=== PATIENT | female | born 1965 | race Caucasian/White ===

== ENCOUNTER → 2019-05-19 09:53 | Outpatient (CLI) | payer MEDICARE, MEDICAID ==
[~2019-05-19 09:53] MED LIST: CYCLOBENZAPRINE10 MG PO; HYDROCODON-ACE1 EAC7 PO; KLONOPIN1 MG PO; LEVO-T25 MCG PO; OMEPRAZOLE40 MG PO; PAXIL20 MG PO; SEROQUEL400 MG PO; TYLENOL W/CODEI1 TAB PO; ULTRAM50 MG PO
[2019-06-06 13:37] VITALS: BMI 33.2
== END | disposition home or self-care (01) ==
LOC: D.OPS 08:30
PROVIDERS: ATTEND Surgery
DX: K21.9 Gastro-esophageal reflux disease without esophagitis (principal); K44.9 Diaphragmatic hernia without obstruction or gangrene

== ENCOUNTER 2019-06-06 06:05 | Inpatient (IN) | payer MEDICARE ==
[~2019-06-06] VITALS: Ht 162.6 cm; Wt 87.7 kg
[2019-06-06] VITALS (8 sets, daily range): BP systolic 111–138; BP diastolic 76–83; Ht 162.6 cm; Wt 87.7 kg
[~2019-06-06 06:05] MED LIST changes: -HYDROCODON-ACE1 EAC7 PO
[2019-06-06 06:39] LABS: BASOPHILS 0.5 % (0-2); EOSINOPHILS 5.3 % (0-7); HEMATOCRIT 32.3 % (36.0-48.0); HEMOGLOBIN 10.1 g/dL (12-16); IMMATURE GRANULOCYTES 0.3 % (0-5); LYMPHOCYTES 19.7 % (15-50); MCH 21.9 pg (26.0-34.0); MCHC 31.3 g/dL (31.0-37.0); MCV 70.1 fL (80.0-100.0); MEAN PLATELET VOLUME 10.1 fL (7.4-10.4); MONOCYTES 8.8 % (2-11); NEUTROPHILS 65.4 % (40-80); PLATELET COUNT 290 10x3/uL (130-400); RBC 4.61 10x6/uL (4.00-5.40); RDW 19.2 % (11.5-14.5); WBC 9.6 10x3/uL (4.8-10.8)
--- NOTE | 2019-06-06 08:22 | NUR ---
0735 PT SNEEZING AND C/O ITCHING IN NOSE FROM NASAL SWABS. QTIPS GIVEN TO PATIENT TO WET WITH WATER AND SHE REMOVED SOME OF THE IODINE FROM NOSE. SYMPTOMS IMPROVED. NO ALLERGIC REACTION NOTED FROM IODINE AFTER REMOVAL OF SOME OF THE RESIDUE.
--- NOTE | 2019-06-06 09:45 | NUR ---
PATIENT HAS RED INFLAMMED AREA THAT HAS 2 SPOTS IN THE MIDDLE OF AREA, ON RIGHT HIP, JENNIFER.
--- NOTE | 2019-06-06 12:35 | NUR ---
RCVED PT FROM REC ROOM VIA HOSPITAL STAFF AND BED. ALERT AND ORIENTED. CURRENTLY RCVING 2L VIA NC. IV LOCATED TO RIGHT HAND. COMPLAINING OF STIFFNESS OF THE NECK AND BACK. ASKING FOR ICE CHIPS AND PAIN MED. MORPHINE HEADHUNTER PUMP INITIATED. WILL CONT TO MONITOR.
--- NOTE | 2019-06-06 19:46 | NUR ---
UP IN BED, ABLE TO VOICE ALL NEEDS. C/O PAIN OF 3/10, REQUESTS ICE PACK FOR ABDOMEN, LONGER CANNULA GIVEN AND ROOM REARRANGED TO ACCOMODATE RESTROOM TRIPS, EXPRESSED VERBAL THANKS, REQUESTED EVENING MEDS SOON POSSIBLE, NO FURTHER COMPLAINTS OR S/S OF ANY DISTRESS NOTED. WILL NOTE ANY CHANGE.
--- NOTE | 2019-06-06 23:06 | NUR ---
IV TO LEFT HAND WAS DISLODGED DURING TRANSFER TO RESTROOM, CATHETER WAS INTACT UPON REMOVAL, RESITED TO INNER LEFT WRIST AND REINFORCED WITH KERLIX AND JOSE WRAP TO HELP PROTECT DURING FUTURE TRANSFERS.
--- NOTE | 2019-06-07 00:47 | NUR ---
CALLED TO ROOM FOR PAIN TO IV SITE, NOTED TO BE DISLODGED, VERY RESTLESS AND FREELY MOVING ABOUT, IV WAS REMOVED WITH CATHETER TIP INTACT, PT COMPLAINED OF PAIN TO SITE, ICE PACK PROVIDED WILL ATTEMPT TO RESITE IV WHEN PT IS CALMER.
--- NOTE | 2019-06-07 00:57 | NUR ---
COMPLAINS OF PAIN TO LEFT HAND, TYLENOL GIVEN PER ORDERS, STATES SHE WANTS TO WAIT JUST A LITTLE BIT BEFORE GETTING NEW IV.
[2019-06-07 01:44] VITALS: BP 116/71
--- NOTE | 2019-06-07 01:55 | NUR ---
IV RESITED TO RIGHT HAND.
[2019-06-07 04:38] VITALS: BP 124/75
[2019-06-07 06:02] LABS: BASOPHILS 0.3 % (0-2); EOSINOPHILS 2.1 % (0-7); HEMATOCRIT 29.1 % (36.0-48.0); HEMOGLOBIN 8.9 g/dL (12-16); IMMATURE GRANULOCYTES 0.2 % (0-5); LYMPHOCYTES 11.2 % (15-50); MCHC 30.6 g/dL (31.0-37.0); MCV 71.9 fL (80.0-100.0); MEAN PLATELET VOLUME 10.2 fL (7.4-10.4); MONOCYTES 5.9 % (2-11); NEUTROPHILS 80.3 % (40-80); PLATELET COUNT 257 10x3/uL (130-400); RBC 4.05 10x6/uL (4.00-5.40); RDW 19.2 % (11.5-14.5); WBC 10.1 10x3/uL (4.8-10.8)
--- NOTE | 2019-06-07 06:09 | NUR ---
AFTER IV WAS RESITED, ABLE TO GET REST AND QUALITY HOURS OF SLEEP. EASILY AROUSED TO VERBAL STIMULI THIS MORNING. WILL NOTE ANY CHANGE.
--- NOTE | 2019-06-07 06:23 | NUR ---
I have reviewed this patient and I concur with the Shift Assessment completed by the Licensed Practical Nurse today this shift.
[2019-06-07 06:28] LABS: ALBUMIN 3.3 g/dL (3.4-5.0); ANION GAP 14.1 mmol/L (8-16); BILIRUBIN - TOTAL 0.6 mg/dL (0.2-1.3); CALCIUM 8.6 mg/dL (8.5-10.1); CARBON DIOXIDE 26.1 mmol/L (21.0-32.0); CREATININE - SERUM 1.1 mg/dL (0.6-1.3); POTASSIUM - SERUM 4.2 mmol/L (3.5-5.1); PROTEIN - SERUM 7.1 g/dL (6.4-8.2)
--- NOTE | 2019-06-07 07:12 | NUR ---
PATIENT RESTING IN BED WITH NO ISSUES VOICED, IV PATENT. PAIN TOLERATED WITH MORPHINE JAVASCRIPT PROGRAMMER. PATIENT TOLERATING CLEAR LIQUID DIET WELL. STERI-STRIPS INTACT TO ABD LAP SITES X5.
[2019-06-07 08:24] VITALS: BP 116/77
[2019-06-07] MEDS ORDERED: HYDROCODON-ACE1 EAC7 PO (09:43)
--- NOTE | 2019-06-07 13:00 | NUR ---
TORADOL GIVEN THEN IV REMOVED WITH NO REDNESS OR EDEMA AT SITE. DISCHARGE INSTRUCTIONS GIVEN WITH PATIENT VOICING UNDERSTANDING. PATIENT IS WAITING ON MOTHER FOR RIDE HOME
--- NOTE | 2019-06-07 13:43 | NUR ---
PATIENT TAKEN BY WHEELCHAIR TO PRIVATE CAR
--- NOTE | 2019-06-09 16:32 | MORECARE ---
CASE MANAGEMENT DISCHARGE SUMMARY PATIENT: REBEKA THOMPSON UNIT: [id number] ADM DATE: 06/06/19 AGE: 53 : 61 SEX: F ROOM/BED: D.2239 AUTHOR: ASHLEE OTTO PHYSICIAN: REFERRING PHYSICIAN: KENNY CLEVELAND MD DATE OF SERVICE: 06/09/19 Discharge Plan Patient Name: REBEKA THOMPSON [facility] [facility] 1965 Planned Disposition: Anticipated Discharge Date: Discharge Date: 06/07/2019 Expected LOS: 0 Initial Reviewer: [email or web address] Initial Review Date: 06/09/2019 Generated: 06/09/19 5:32 pm Patient Name: REBEKA THOMPSON Page [id number] at 1632 All edits/amendments must be made on the electronic document DICTATION DATE: 06/09/19 1632 BULK COOLERS INSTALLER: ALISA 06/09/19 1632 RPT#: [id number] DC DATE:06/07/19 STATUS: DIS IN [facility] [address] [place] [address] END OF REPORT
== END 2019-06-07 13:44 | disposition home or self-care (01) | DRG 328 ==
LOC: D.OPS 06:05 → D.PAN 09:00 → D.OPS 09:15 → D.MS 11:16 → D.OPS 11:46 → D.MS 11:47
PROVIDERS: Anesthesiology; ADMIT Surgery; ATTEND Surgery
PROC: 0BQT4ZZ Repair Diaphragm, Percutaneous Endoscopic Approach (ICD-10-PCS; principal; 2019-06-06 09:00)
PROC: 0DQ44ZZ Repair Esophagogastric Junction, Percutaneous Endoscopic Approach (ICD-10-PCS; 2019-06-06 09:00)
DX: K44.9 Diaphragmatic hernia without obstruction or gangrene (principal); K21.0 Gastro-esophageal reflux disease with esophagitis; E78.5 Hyperlipidemia, unspecified; E03.9 Hypothyroidism, unspecified; F17.200 Nicotine dependence, unspecified, uncomplicated